=== PATIENT | female | born 2000 | race Caucasian/White ===

== ENCOUNTER 2020-02-29 22:48 | Emergency (ER) | payer BC, OTHER ==
[~2020-02-29] VITALS: Ht 170.2 cm; Wt 54.4 kg
[2020-03-01 00:41] LABS: ABSOLUTE NEUTROPHILS 3.6 thou/uL (1.4-8.2); BASOPHILS 0.9 % (0.0-2.0); EOSINOPHILS 3.5 % (0.0-3.0); HEMATOCRIT 37.4 % (37.0-47.0); HEMOGLOBIN 13.4 gm/dL (12.0-15.0); LYMPHOCYTES 34.7 % (24.0-44.0); MCH 33.8 pg (26.0-34.0); MCHC 35.7 g/dL (28.0-37.0); MCV 94.7 fL (80.0-100.0); MONOCYTES 7.9 % (1.0-8.0); PLATELET COUNT 223 thou/uL (150-400); RBC 3.95 mil/uL (4.20-5.00); RDW 12.7 % (10.5-14.5); WBC 6.7 thou/uL (4.0-11.0)
[2020-03-01 00:45] LABS: ANION GAP 8 mmol/L (7-16); BUN 7 mg/dL (7-18); CALCIUM 8.6 mg/dL (8.5-10.1); CHLORIDE 103 mmol/L (98-107); CO2 28 mmol/L (21-32); CREATININE 0.7 mg/dL (0.6-1.0); GLUCOSE 98 mg/dL (74-106); POTASSIUM 3.8 mmol/L (3.5-5.1); SODIUM 139 mmol/L (136-145)
[2020-03-01 00:55] LABS: TROPONIN-I <0.06 ng/mL (<0.06)
[2020-03-01 02:14] VITALS: BP 111/73
--- NOTE | 2020-03-03 07:42 | EKG ---
[facility] [address] ELECTROCARDIOGRAM REPORT Name: DOMINICK ALMENDAREZ Room #: DEP [facility]#: [id number] Admission: 02/29/20 Attend Phys: Discharge: 03/01/20 Date of : [birth year] Report #: [id number] THIS REPORT FOR: cc: Quinn Fox MD, Luis F. MD Lundgren,Isidoro De Jesus MD [facility] ~ THIS REPORT FOR: //name// [facility] ED Test Date: 2020-02-29 Test Time: 23:05:07 Pat Name: DOMINICK ALMENDAREZ Department: Room: Gender: F Account Clerk: NO : 2000 Requested By: Breanna Gamez Order Number: [id number] MD: Isidoro Barrett Measurements Intervals [place] Rate: 74 P: 59 DE: 143 QRS: 76 QRSD: 90 T: 17 QT: 378 QTc: 420 Interpretive Statements Sinus rhythm RSR' in V1 or V2, probably normal variant Nonspecific T abnormalities, anterior leads No previous ECG available for comparison Electronically Signed On 03-03-2020 7:42:31 CDT by Isidoro Barrett [email or web address] <ELECTRONICALLY SIGNED> By: Isidoro Barrett MD, [facility] 03/03/20 [id number] Isidoro Barrett MD, [facility] /EPI
== END 2020-03-01 02:15 | disposition home or self-care (01) ==
LOC: ER 22:48
PROVIDERS: Emergency Medicine
DX: R07.89 Other chest pain (principal); J45.909 Unspecified asthma, uncomplicated